=== PATIENT | female | born 1975 | race Caucasian/White ===

== ENCOUNTER 2023-01-24 08:42 | Emergency (ER) | payer MEDICAID ==
[~2023-01-24] VITALS: Ht 162.6 cm; Wt 90.0 kg
[2023-01-24] MEDS ORDERED: BENZ200C52 PO (10:06)
[2023-01-24 10:28] VITALS: BP 130/61
== END 2023-01-24 11:29 | disposition home or self-care (01) ==
LOC: ER 10:26
DX: R05.3 Chronic cough (principal); E11.9 Type 2 diabetes mellitus without complications; I10 Essential (primary) hypertension
CPT/HCPCS: 71045; 99283